=== PATIENT | male | born 1960 | race Caucasian/White ===

== ENCOUNTER 2019-09-08 10:29 | Emergency (ER) | payer OTHER ==
[2019-09-08] MEDS ORDERED: HYDROcodone/ACETAMIN 5-325 MG* 1 TAB PO ONE (11:26)
--- NOTE | 2019-09-08 11:43 | ED ---
Upper Extremity Pain - HPI Summary HPI Summary: Patient is a 59 y/o M presenting to the ED for a chief complaint of left UE pain. Patient is present with his . On the morning of 09/04/19, patient began to feel the left UE pain, with pain radiating down the left arm. Patient also describes left UE numbness with the pain. Patient admits left thumb numbness at baseline from a previous ligament repair surgery. Patient reports the pain worsens with ambulation in certain directions and lifting of the left UE. Patient denies fever or headache. Patient currently takes blood thinners and medication for a PMHx of HTN. Patient has a PSHx of ligament repair surgery and left rotator cuff surgery for which he follows up with Dr. Andrew who the patient last saw 3-4 months ago. The left rotator cuff surgery was performed in January 2018, and patient went to physical therapy from January to October 2018. Patient does not currently go to physical therapy. Patient denies taking ibuprofen or any other OTC medications for the pain. Patients states that the patient has taken steroids for the left shoulder pain in the past. Patient does pulling at work. Patient is left-handed. - History of Current Complaint Chief Complaint: EDShoulderClavicleInj Stated Complaint: LEFT SHOULDER PAIN Time Seen by Provider: 09/08/19 11:09 Hx Obtained From: Patient, Family/Rfid Systems Engineer - Onset/Duration: Started Days Ago - Since 09/04/19, Atraumatic, Still Present Timing: Constant, Lasting Days - Since 09/04/19 Severity Initially: Moderate Severity Currently: Moderate Pain Location: Shoulder - Left, Arm - Left, radiates from left shoulder Aggravating Factor(s): Movement, Lifting Alleviating Factor(s): Nothing Associated Signs & Symptoms: Positive: Numbness/Tingling - Left shoulder down the left arm; left thumb numbness at baseline from previous surgery. Negative: Fever Related History: Dominant Hand Left - Allergies/Home Medications Allergies/Adverse Reactions: Allergies Allergy/AdvReac Type Severity Reaction Status Date / Time No Known Allergies Allergy Verified 09/08/19 10:36 PMH/Surg Hx/FS Hx/Imm Hx Previously Healthy: Yes Endocrine/Hematology History: Denies: Hx Diabetes, Hx Thyroid Disease Cardiovascular History: Reports: Hx Hypertension Respiratory History: Denies: Hx Asthma, Hx Chronic Obstructive Pulmonary Disease (COPD) GI History: Denies: Hx Ulcer Sensory History: Denies: Hx Legally Blind, Hx Deafness Opthamlomology History: Denies: Hx Legally Blind EENT History: Denies: Hx Deafness - Surgical History Surgical History: Yes Surgery Procedure, Year, and Place: 2012 - stents placed in leg arteries. Left rotator cuff surgery - January 2018 Infectious Disease History: No Infectious Disease History: Denies: Hx Clostridium Difficile, Hx Hepatitis, Hx Human Immunodeficiency Virus (HIV), Hx of Known/Suspected MRSA, Hx Shingles, Hx Tuberculosis, Hx Known/ Suspected VRE, Hx Known/Suspected VRSA, History Other Infectious Disease, Traveled Outside the [place] in Last 30 Days - Family History Known Family History: Negative: Cardiac Disease - Social History Occupation: Unemployed Lives: With Family Alcohol Use: Rare Hx Substance Use: Yes Substance Use Type: Reports: Marijuana Hx Tobacco Use: No Smoking Status (MU): Never Smoked Tobacco Type: Cigarettes Amount Used/How Often: 2-3 cigs/day Length of Time of Smoking/Using Tobacco: 38+ years Have You Smoked in the Last Year: Yes - In the process of quitting Review of Systems Negative: Fever Positive: Arthralgia - Left shoulder that radiates down the left arm, Myalgia - Left arm, radiates from left shoulder Positive: Numbness - Left shoulder down the left arm; left thumb numbness at baseline from previous surgery. Negative: Headache All Other Systems Reviewed And Are Negative: Yes Physical Exam - Summary Physical Exam Summary: Appearance: The patient is well-nourished in no acute distress and in no acute pain. Skin: The skin is warm and dry, and skin color reflects adequate perfusion. HEENT: The head is normocephalic and atraumatic. The pupils are equal and reactive. The conjunctivae are clear and without drainage. Nares are patent and without drainage. Mouth reveals moist mucous membranes, and the throat is without erythema and exudate. The external ears are intact. The ear canals are patent and without drainage. The tympanic membranes are intact. Neck: The neck is supple with full range of motion and non-tender. There are no carotid bruits. There is no neck vein distension. Respiratory: Chest is non-tender. Lungs are clear to auscultation and breath sounds are symmetrical and equal. Cardiovascular: Heart is regular rate and rhythm. There is no murmur or rub auscultated. There is no peripheral edema and pulses are symmetrical and equal. Abdomen: The abdomen is soft and non-tender. There are normal bowel sounds heard in all four quadrants and there is no organomegaly palpated. Musculoskeletal: There is no back tenderness noted. Extremities are non-tender with full range of motion. There is good capillary refill. There is no peripheral edema or calf tenderness elicited. Passive ROM until 90 degrees adduction and flexion at 20 degrees with active ROM. Neurological: Patient is alert and oriented to person, place and time. The patient has symmetrical motor strength in all four extremities. Cranial nerves are grossly intact. Deep tendon reflexes are symmetrical and equal in all four extremities. Psychiatric: The patient has an appropriate affect and does not exhibit any anxiety or depression. Triage Information Reviewed: Yes Vital Signs On Initial Exam: Initial Vitals Temp Pulse Resp BP Pulse Ox 97.9 F 89 14 172/91 98 09/08/19 10:33 09/08/19 10:33 09/08/19 10:33 09/08/19 10:33 09/08/19 10:33 Vital Signs Reviewed: Yes Procedures - Sedation Patient Received Moderate/Deep Sedation with Procedure: No Diagnostics - Vital Signs Vital Signs Temp Pulse Resp BP Pulse Ox 09/08/19 10:33 97.9 F 89 14 172/91 98 - Laboratory Lab Statement: Any lab studies that have been ordered have been reviewed, and results considered in the medical decision making process. - Radiology Shoulder X-ray Radiology Interpretation Completed By: Radiologist Summary of Radiographic Findings: Shoulder X-ray IMPRESSION: No fracture or traumatic malalignment of the left shoulder. Reviewed by ED physician. Course/Dx - Course Course Of Treatment: Mr. Mclaughlin has a chronically bad left shoulder. The last couple of days it's begun to hurt more and especially this morning. He she has no recent injury and no fever or chills. He is nontoxic in appearance with stable vitals. There is no effusion obvious on x-ray. I think this is a flareup with inflammation. He is unfortunate in that he cannot take nonsteroidals and I recommended a steroid burst. The possibility of a septic joint still exists but there is no clinical evidence for that. However I did recommend that he follow up with orthopedics in the next couple of days. - Diagnoses Provider Diagnoses: Acute shoulder pain Discharge ED - Sign-Out/Discharge Documenting (check all that apply): Patient Departure - Discharge - Discharge Plan Condition: Stable Disposition: HOME Prescriptions: methylPREDNISolone [Medrol Dosepak 4 MG*] 4 mg PO .SEE CALVIN INSTRUCTION #1 tab traMADol TAB* [Ultram*] 50 mg PO Q6HR PRN #20 tab MDD 4 PRN Reason: Pain Patient Education Materials: Shoulder Pain (ED) Referrals: Rex Kerr MD [Medical Doctor] - Additional Instructions: Follow up with your orthopedic doctor, Dr. Rex Andrew, this week. Return to the Emergency Department for any new or worsening symptoms. - Billing Disposition and Condition Condition: STABLE Disposition: Home - Attestation Statements Document Initiated by Scribe: Yes Documenting Scribe: Laxmi Pappas Provider For Whom Sona is Documenting (Include Credential): Bryce Sims MD Scribe Attestation: Laxmi Long, scribed for Bryce Sims MD on 09/08/19 at 1501. Scribe Documentation Reviewed: Yes Provider Attestation: The documentation as recorded by the Laxmi law accurately reflects the service I personally performed and the decisions made by me, Bryce Sims MD Status of Scribe Document: Viewed
[2019-09-08 13:30] VITALS: BP 142/87
== END 2019-09-08 13:27 | disposition home or self-care (01) ==
LOC: ED 10:29
DX: M25.512 Pain in left shoulder (principal); G89.29 Other chronic pain; I10 Essential (primary) hypertension; F17.210 Nicotine dependence, cigarettes, uncomplicated; Z79.01 Long term (current) use of anticoagulants; Z79.899 Other long term (current) drug therapy
CPT/HCPCS: 99282